=== PATIENT | female | born 1950 | race African-American/Black ===

== ENCOUNTER 2017-03-20 11:10 | Emergency (ER) | payer OTHER ==
[~2017-03-20] VITALS: Ht 160 cm; Wt 111.4 kg
[2017-03-20] MEDS ORDERED: INSLAN SQ (11:31)
[2017-03-20] MEDS ORDERED: HYDR25TA PO (11:31)
[2017-03-20] MEDS ORDERED: METF500T4 PO (11:31)
[2017-03-20 11:33] LABS: GLUCOSE,POINT OF CARE 230 MG/DL (70-110)
[2017-03-20] MEDS ORDERED: ONDANSETRON HCL 4 MG TABLET PO ONE (12:00)
[2017-03-20] MEDS ORDERED: IBUPROFEN 800 MG TABLET PO ONE (12:00)
[2017-03-20 12:41] LABS: INFLUENZA TYPE A NEGATIVE FOR TYPE A (NEGATIVE); INFLUENZA TYPE B NEGATIVE FOR TYPE B (NEGATIVE)
[2017-03-20 12:57] VITALS: BP 150/88
== END 2017-03-20 13:04 | disposition home or self-care (01) ==
LOC: EMS 11:13
DX: J11.1 Influenza due to unidentified influenza virus with other respiratory manifestations (principal); E11.9 Type 2 diabetes mellitus without complications; R53.1 Weakness; I10 Essential (primary) hypertension; Z79.4 Long term (current) use of insulin; Z88.5 Allergy status to narcotic agent
CPT/HCPCS: 82962; 87804; 99284; Q0162